=== PATIENT | female | born 1995 | race Caucasian/White ===

== ENCOUNTER 2020-01-27 01:37 | Emergency (ER) | payer MEDICAID, SELFPAY ==
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
[2020-01-27 01:36] VITALS: BP 138/97; PULSE 113; RESP 18; TEMP 36.7; O2SAT 98
[2020-01-27 01:59] VITALS: RESP 21; O2SAT 97
[2020-01-27 02:11] LABS: Basophils Absolute Auto 0.1 K/mm3 (0.0-0.1); Basophils Percent Auto 0.3 % (0.2-1.2); Hematocrit 45.9 % (37.0-47.0); Hemoglobin 15.4 g/dL (12.0-15.0); Immature Granulocyte Absolute 0.12 K/mm3 (0.00-0.031); Immature Granulocyte Percent A 0.8 % (0-0.5); Lymphocytes Absolute Auto 1.59 K/mm3 (0.9-3.2); Lymphocytes Percent Auto 10.1 % (18.3-44.2); Mean Corpuscular HGB Conc 33.6 g/dl (32-36); Mean Corpuscular Volume 89.5 fl (80-100); Mean Platelet Volume 9.9 fl (7.4-10.4); Monocytes Percent Auto 6.4 % (2.6-8.5); Neutrophils Absolute Auto 12.9 K/mm3 (1.3-6.7); Neutrophils Percent Auto 82.4 % (45.5-73.1); Platelet Count Result 403 k/mm3 (150-375); Red Blood Count 5.13 M/mm3 (4.2-5.4); Red Cell Distribution Width 12.6 % (11.5-14.5); White Blood Count 15.7 K/mm3 (4.5-10.0)
[2020-01-27 02:21] LABS: Prothrombin Time 13.1 Seconds (11.1-14.7)
[2020-01-27 02:22] LABS: Partial Thromboplastin Time 29.3 SECONDS (22.3-36.8)
[2020-01-27] MEDS: SODIUM CHLORIDE 0.9% IV 1,000 ML 999 ML IV CONT (02:41)
[2020-01-27 02:42] VITALS: BP 148/106; PULSE 110; RESP 21; O2SAT 97
[2020-01-27 02:47] LABS: Ethanol 203 mg/dL (<10)
[2020-01-27 02:49] LABS: Alanine Aminotransferase 29 U/L (4-35); Albumin Level 4.9 g/dL (3.5-5.1); Alkaline Phosphatase 141 U/L (38-126); Aspartate Amino Transferase 39 U/L (14-36); Bilirubin,Total 0.2 mg/dL (0.2-1.3); Blood Urea Nitrogen 5 mg/dL (7-17); Carbon Dioxide 23 mmol/L (22-30); Chloride 107 mmol/L (98-107); Estimated CRCL calculation 190 ml/min; Estimated Glomerular Filt Rate > 60; Glucose 118 mg/dL (65-105); Potassium 3.4 mmol/L (3.4-5.0); Sodium 143 mmol/L (137-145)
[2020-01-27 02:51] LABS: Add Urine Microscopic? YES; Appearance Urine Clear (Clear); Bilirubin Urine Negative (Negative); Blood Urine Negative (Negative); Color Urine Yellow (Yellow); Glucose Urine UA Negative (Negative); Hyaline Casts Urine 20-29 /lpf; Ketones Urine Negative (Negative); Leukocyte Esterase Ur Negative LEU/UL (Negative); Mucus Urine Rare /lpf; Nitrate Urine Negative (Negative); Protein Urine 2+ mg/dL (Negative); RBC Urine 0-2 /hpf (0-2); Specific Grav Ur 1.011 (1.001-1.035); Squamous Epithelial Cell Urine Many /hpf (Few); Urobilinogen Urine Negative mg/dL (<2.0); WBC Urine 0-3 /hpf
[2020-01-27 03:03] LABS: Amphetamine Screen Urine Negative (Negative); Barbiturate Screen Urine Negative (Negative); Benzodiazepines Screen Urine Negative (Negative); Cannabinoid Screen Urine Positive (Negative); Cocaine Screen Urine Negative (Negative); Methadone Screen Urine Negative (Negative); Opiate Screen Urine Negative (Negative); Phencyclidine Screen Urine Negative (Negative)
--- NOTE | 2020-01-27 03:45 | PC.NURSE ---
Patient returning from radiology at this time.
[2020-01-27 04:09] VITALS: BP 136/89; PULSE 107; RESP 23; O2SAT 98
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
[2020-01-27 05:14] VITALS: BP 122/86; PULSE 98; RESP 20; TEMP 36.4; O2SAT 97
== END 2020-01-27 05:16 | disposition home or self-care (01) ==
PROVIDERS: Emergency Provider Emergency Medicine
DX: S42.441A Displaced fracture (avulsion) of medial epicondyle of right humerus, initial encounter for closed fracture (principal); S50.02XA Contusion of left elbow, initial encounter; S60.512A Abrasion of left hand, initial encounter; S80.01XA Contusion of right knee, initial encounter; X58.XXXA Exposure to other specified factors, initial encounter
CPT/HCPCS: 36415; 70450; 71260; 72125; 73080; 73130; 73560; 73564; 74177; 80053; 80307; 81001; 81025; 85025; 85610; 85730; 99284; A4565; J7030; Q9967

== ENCOUNTER 2020-04-07 08:00 | Outpatient (RCR) | payer OTHER, SELFPAY ==
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
--- NOTE | 2020-03-23 16:13 | PCPTNOTE ---
Patient called & cancelled scheduled appointment for tomorrow, 03/24/2020, due to family emergency.
--- NOTE | 2020-04-07 08:28 | PCPTNOTE ---
Patient did not show up for scheduled appointment this date.
--- NOTE | 2020-04-19 12:42 | PCPTNOTE ---
PHYSICAL THERAPY DISCHARGE NOTE Attending Provider: Lico Preston MD Patient:[place] Zuniga Date of :1995 [place] did not return for her final physical therapy appointment scheduled for 04/07/2020. At the last attended appointment we did discuss potential discharge from PT soon. No formal assessment was performed; however, patient did appear to have significantly improved elbow ROM for flexion, extension, and pronation/supination. The right arm is not quite symmetrical to the left but is functional. She will be discharged from PT at this time. Thank you for referring this patient to [facility]. Please review, sign, date and return this discharge summary REMEDIOS. I have been updated about the patient's current status and I agree with discharge from the above service at this time. Referring Physician Date
== END 2020-04-26 14:29 | disposition home or self-care (01) ==
LOC: ANHPT 08:00
PROVIDERS: PCP Nurse Practitioner Family; Visit Provider Orthopaedic Surgery
DX: S52.134D Nondisplaced fracture of neck of right radius, subsequent encounter for closed fracture with routine healing (principal)
CPT/HCPCS: 97110; 97140; 97161

== ENCOUNTER 2025-03-05 12:01 | Outpatient (CLI) | payer OTHER, SELFPAY ==
[2025-03-05 15:39] LABS: Hematocrit 41.3 % (37.0-47.0); Hemoglobin 13.3 g/dL (12.0-15.0); Mean Corpuscular HGB Conc 32.2 g/dl (32-36); Mean Corpuscular Hemoglobin 28.9 pg (26-34); Mean Corpuscular Volume 89.8 fl (80-100); Mean Platelet Volume 10.9 fl (7.4-10.4); Platelet Count Result 312 k/mm3 (150-375); Red Cell Distribution Width 13.5 % (11.5-14.5); White Blood Count 11.1 K/mm3 (4.5-10.0)
[2025-03-05 15:53] LABS: Glucose 1 Hour PP 50gm Dose 93 mg/dL
[2025-03-05 16:34] LABS: HIV 1/2 Ab P24 Ag Result Negative (Negative)
[2025-03-05 16:50] LABS: Syphilis IgG/IgM Antibody Non-Reactive (Nonreactive)
[2025-03-05 16:54] LABS: Hepatitis B Surface Antigen Negative (Negative)
[2025-03-05 16:55] LABS: Rubella IgG Antibody 22.2 IU/ML
[2025-03-07 02:14] LABS: CMV IgG Antibody. <0.60 U/mL
[2025-03-12 16:43] LABS: SMA 2.0 RISK VARIANT NOT DETECTED
[2025-03-19 19:13] LABS: CF Result NEGATIVE
== END 2025-03-05 12:02 | disposition home or self-care (01) ==
PROVIDERS: PCP Internal Medicine; Visit Provider Student in an Organized Health Care Education/Training Program
DX: N91.2 Amenorrhea, unspecified (principal)
CPT/HCPCS: 36415; 81220; 81329; 82947; 84702; 85027; 86593; 86644; 86703; 86747; 86762; 86787; 86850; 86900; 86901; 87086; 87340; G0432

== ENCOUNTER 2025-08-26 21:16 | Emergency (ER) | payer OTHER, SELFPAY ==
[2025-08-26 21:35] VITALS: BP 131/84; PULSE 80; RESP 17; TEMP 36.8; O2SAT 99
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
[2025-08-27] MEDS: BACITRACIN OINTMENT 15 GM TUBE 1 APPLIC TOPICAL (00:38)
--- OUTSIDE RECORDS SUMMARY | 2025-08-27 00:42 | XMS_ITS | Data Portability ---
Author Organization [facility] [place], Main Office Address [address] [place] [address] Assessment No assessment recorded. Plan of Treatment Reminders Order Date Submit Date Provider Last Modified By Organization Details Last Modified Time Details Appointments None recorded. Lab CBC w/ auto diff 2024 025 [email or web address] [employer] [facility], [address], [address], [place], [address], 09:25:08 lipid panel, serum 2024 025 SABRINA [facility] [employer] [facility], [address], [place], [address], 5 13:40:50 CMP, serum or plasma 2024 025 [email or web address] [employer] [facility], [address], [place], [address], 09:25:08 Referral None recorded. Procedures None recorded. Surgeries None recorded. Imaging None recorded. Medication Orders fluticasone propionate 50 mcg/actuati on nasal spray,suspe nsion [address] [facility], [address] [place] [address], [address], 5 12:09:11 montelukast 10 mg tablet [address] [facility], [address] [place] [address], [address], 12:09:47 Patient TargetsNo targets recorded. Patient Instructions Encounter Date Encounter Id Patient Instructions Last Modified By Organization Details Last Modified Time 04/16/2025 [id number] Discussed the importance of antibiotic therapy compliance. Patient needs to take medication as prescribed, including completing entire course even if symptoms improve/resolve. Discussed possible side effects of medication. Instructed patient to take medication with food to prevent stomach upset and increase daily water intake. Patient will follow up in 3-4 days if symptoms are not improving or worsen while taking antibiotics. [email or web address] Not available 04/16/2025 16:56:03 Discussed antibiotic compliance and care. Continue to see OB as scheduled and call office with any concerns or problems. Not available 04/16/2025 16:56:50 Reason for Referral None Reported. Results Created Date Observation Date Name Description Value Unit Range Abnormal Flag Note LastModifiedBy Organization Detail LastModifiedTime 02/12/2002/11/2025 urina lysis , dipst ick Leukocytes (reference range: negative angella/ l) Small Not Available [facility] Internal [facility] [address] [place], [address], 02/10/2025 11:39:17 02/12/2002/11/2025 urina lysis , dipst ick Nitrite (reference rage: negative mg/dl) negati ve Not Available [facility] Internal [facility] [address] [place], [address], 02/10/2025 11:39:17 02/12/2002/11/2025 urina lysis , dipst ick Urobilinogen (reference range: 0.2-1 mg/dl) 0.[address] [facility] Internal [facility] [address] [place], [address], 02/10/2025 11:39:17 02/12/20 25 02/11/2025 urina lysis , dipst ick Protein (reference range: negative mg/dl) Negati ve Not Available [facility] [address] [place], [address], 02/10/2025 11:39:17 02/12/20 25 02/11/2025 urina lysis , dipst ick pH (reference range: 5-7) 6.5 Not Available [facility] [address] [place], [address], 02/10/2025 11:39:17 02/12/20 25 02/11/2025 urina lysis , dipst ick Blood (reference range: negative Antonio/ l) Negati ve Not Available [facility] [address] [place], [address], 02/10/2025 11:39:17 02/12/20 25 02/11/2025 urina lysis , dipst ick Specific [place] (reference range: 1.005-1.030) 1.015 Not Available [facility] [address] [place], [address], 02/10/2025 11:39:17 02/12/20 25 02/11/2025 urina lysis , dipst ick Ketone (reference range: negative mg/dl) Negati ve Not Available [facility] [address] [place], [address], 02/10/2025 11:39:17 02/12/20 25 02/11/2025 urina lysis , dipst ick Bilirubin (reference range: negative mg/dl) Negati ve Not Available [facility] [address] [place], [address], 02/10/2025 11:39:17 02/12/20 25 02/11/2025 urina lysis , dipst ick Glucose (reference range: negative mg/dl) Negati ve Not Available [facility] [place] [place] [facility] [address] [place], [address], 02/10/2025 11:39:17 02/12/20 25 02/11/2025 urina lysis , dipst ick Appearance Clear Not Available [facility] [address] [place], [address], 02/10/2025 11:39:17 02/12/20 25 02/11/2025 urina lysis , dipst ick Color Yellow Not Available [facility] Internal [facility] [address] [place], [address], 02/10/2025 11:39:17 Result Notes None recorded. Problems Name Problem SNOMED Code Status Onset Date Resolution Date Notes Provider Name and Address Organization Details Recorded Time Acute sinusitis 55025782 Active 2021 Not Available [facility] 3 00:51:03 Adult health examination Active 2021 Not Available [facility] 3 00:51:03 Obesity 083143108 Active 2021 Not Available [facility] 3 00:51:03 Sinusitis 66258538 Active 2024 Millie Espinal MA null, [place] [employer] [facility] [employer] 5 11:58:43 Allergic rhinitis 20930270 Active 2024 Rafael Bauer MD [address], [place], [address] , [employer] 5 12:15:35 Dysuria 05045845 Active 2024 VIRGINIA Chanel [address], [address], [place], [address] , [facility] [employer] [facility] [employer] 5 11:39:15 Missed period 07969367 Active 2024 Bridgett mac, RMLauren null, [facility] [employer] [facility] 5 12:55:07 Generalized anxiety disorder 39840421 Active 2024 VIRGINIA Chanel [address] [facility], [facility] [address], [place], [address] , [facility] [employer] [facility] 5 12:47:49 Problem Notes None recorded. Procedures Surgical History Date Name Laterality Status Provider Name and Address Organization Details Recorded Time 08/13/20 [employer] Procedure completed Not Available [facility] 2022 00:41:10 06/30/20 Date of Last Pap Smear completed Not Available [facility] 11/08/2022 00:41:09 tonsillectomy completed Not Available [facility] 11/08/2022 00:41:10 Imaging Results None recorded. Procedure Notes None recorded. Medical Equipment None Reported. Allergies No known drug allergies Medications Name Sig Start Date Stop Date Status Note LastModified by Organization Details LastModified Time amoxicill in 500 mg capsule TAKE 1 CAPSULE BY MOUTH EVERY 8 HOURS FOR 7 DAYS 05/07 completed Not Available Not Available Not Available Aviane 0.1 mg-20 mcg tablet TAKE 1 TABLET BY MOUTH ONCE DAILY 05/07 completed Not Available Not Available Not Available fluconazo le 150 mg tablet Take 1 tablet every day by oral route. 08/26 completed Not Available Not Available Not Available metronida zole 0.75 % (37.5 mg/5 gram) vaginal gel Insert 1 applicat orful every day by vaginal route at bedtime for 5 days. active Not Available Not Available No t Available ondansetr on HCl 4 mg tablet TAKE 1 TABLET BY MOUTH EVERY 6 HOURS NEEDED FOR NAUSEA AND VOMITING active Not Available Not Available No t Available prednison e 20 mg tablet TAKE 2 TABLETS BY MOUTH ONCE DAILY FOR 5 DAYS 06/08 completed Not Available Not Available Not Available Zithromax 250 mg tablet TAKE 2 TABLETS (500 MG) BY ORAL ROUTE ONCE DAILY FOR 1 DAY THEN 1 TABLET (250 MG) BY ORAL ROUTE ONCE DAILY FOR 4 DAYS 06/27 completed Not Available Not Available Not Available amoxicill in 500 mg tablet Take 1 tablet every 8 hours by oral route for 7 days. 12/03 completed per 10/31/24 patient case / ds Not Available Not Available Not Available metoclopr amide 5 mg tablet TAKE 1 TABLET BY MOUTH ONCE DAILY 05/07 completed Not Available Not Available Not Available sertralin e 25 mg tablet TAKE 1 TABLET BY MOUTH ONCE DAILY active Not Available Not Available No t Available monteluka st 10 mg tablet TAKE 1 TABLET BY MOUTH ONCE DAILY 05/07 completed Not Available Not Available Not Available hydroxyzi ne HCl 25 mg tablet TAKE 1 TABLET BY MOUTH EVERY 6 HOURS NEEDED 06/08 completed Not Available Not Available Not Available ibuprofen 600 mg tablet TAKE 1 TABLET BY MOUTH EVERY 6 HOURS NEEDED active Not Available Not Available No t Available fluticaso ne propionat e 50 mcg/actua tion nasal spray,yolanda pension USE 1 SPRAY(S) IN EACH NOSTRIL ONCE DAILY 05/07 completed Not Available Not Available Not Available doxycycli ne hyclate 100 mg tablet TAKE 1 TABLET BY MOUTH TWICE DAILY 06/08 completed Not Available Not Available Not Available azithromy valarie 500 mg tablet Take 2 tablets every day by oral route for 1 day. active Not Available Not Available No t Available bupropion HCl XL 150 mg 24 hr tablet, extended release TAKE ONE TABLET BY MOUTH ONCE DAILY 05/27 completed Not Available Not Available Not Available nitrofura ntoin monohydra te/macroc rystals 100 mg capsule TAKE 1 CAPSULE BY MOUTH EVERY 12 HOURS FOR 3 DAYS 05/07 completed Not Available Not Available Not Available Nexplanon 68 mg subdermal implant Inject 1 implant by subcutan eous route. 10/11 completed Not Available Not Available Not Available Vitals Date Recorded Body mass index (BMI) Body height Oxygen saturation Heart rate Body weight Systolic And Diastolic Provider Name and Address Organization Details Last Updated DateTime 2 36.6 kg/m2 170.18 cm 98 % 77.99 /min 335166. 61 g 124/70 mm[Hg] [facility] Available [facility] 3 00:43:05 Date Recorded Body mass index (BMI) Body height Oxygen saturation Heart rate Respiratory rate Body temperature Body weight Systolic And Diastolic Provider Name and Address Organization Details Last Updated DateTime 2 36.3 kg/m2 170.18 cm 98 % 77 /min 12 /min 97.7 [degF] 879572. 43 g 110/82 mm[Hg] Not Available [facility] 3 00:43:05 Date Recorded Body weight Body mass index (BMI) Body height Body temperature Heart rate Oxygen saturation Systolic And Diastolic Provider Name and Address Organization Details Last Updated DateTime 5 768566. 28 g 35.2 kg/m2 170.18 cm 97.4 [degF] 83 /min 98 % 116/72 mm[Hg] Bridgett hyman [facility] [employer] [facility] 5 11:48:33 Date Recorded Body height Body mass index (BMI) Body weight Body temperature Oxygen saturation Heart rate Systolic And Diastolic Provider Name and Address Organization Details Last Updated DateTime 5 170.18 cm 33.2 kg/m2 71677.5 8 g 97.8 [degF] 97 % 89 /min 120/86 mm[Hg] Leigh vincent [employer] 5 15:27:45 Date Recorded Body height Body mass index (BMI) Body weight Heart rate Oxygen saturation Body temperature Systolic And Diastolic Provider Name and Address Organization Details Last Updated DateTime 5 170.18 cm 32.7 kg/m2 85501.8 1 g 78 /min 99 % 97.3 [degF] 126/82 mm[Hg] Willy Zamora [facility] [employer] [facility] 5 12:08:11 Social History Question Answer Notes LastModified by Organizat ion Details LastModified Time Tobacco Smoking Status Never Smoker Not Available [facility] 11/08/2022 00:40:59 Do You Have An Advance Directive? No [id number] Information not available 11/08/2022 What Is Your Level Of Caffeine Consumption? Moderate [id number] Information not available 11/08/2022 How Much Tobacco Do You Chew? None [id number] Information not available 11/08/2022 In The 14 Days Before Symptom Onset, Have You Had Close Contact With A Laboratory-confir med COVID-19 While That Case Was Ill? No [id number] Information not available 11/08/2022 In The 14 Days Before Symptom Onset, Have You Had Close Contact With A Person Who Is Under Investigation For COVID-19 While That Person Was Ill? No [id number] Information not available 11/08/2022 What Type Of Diet Are You Following? REGULAR [id number] Information not available 11/08/2022 What Is The Highest Grade Or Level Of School You Have Completed Or The Highest Degree You Have Received? [id number] Information not available 12/03/2024 Do You Use Insect Repellent Routinely? No Information not available 12/03/2024 Where Do You Live? SingleLevelHouse Information not available 12/03/2024 What Was The Date Of Your Most Recent Tobacco Screening? 12/03/2024 Information not available 12/03/2024 Do You Have Any Pets? Yes Information not available 12/03/2024 What Is Your Relationship Status? Single [id number] Information not available 11/08/2022 Do You Use Your Seat Belt Or Car Seat Routinely? Yes [id number] Information not available 11/08/2022 Do You Have Smoke And Carbon Monoxide Detectors In Your Home? Yes Information not available 12/03/2024 Are You Passively Exposed To Smoke? Yes Information no t available 12/03/2024 Are There Any Smokers In Your House? No Information not available 12/03/2024 Do You Use Sunscreen Routinely? Yes [id number] Information not available 11/08/2022 Have You Recently Traveled Abroad? No Information not available 12/03/2024 Sex: Female Functional Status Question Answer Note LastModified by Organizat ion Details LastModified Time What is your level of alcohol consumption? Occasional [id number] Information not available 11/08/2022 Are you currently employed? 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 Never used electronic cigarettes [id number] Information not available 11/08/2022 What is your exercise level? Occasional [id number] Information not available 11/08/2022 Mental Status None recorded. Family History Relationship Description Onset Age of this Age Resolved Age Notes LastModified by Organization Details LastModified Time Maternal Grandmother Heart disease [id number] Not available 11/08/2022 00:41:13 Maternal Aunt Diabetes mellitus [id number] [id number] Not available 11/08/2022 00:41:13 Maternal Aunt Malignant neoplastic disease Not available 04/16 15:20:28 Maternal Uncle Diabetes mellitus [id number].009 [id number] Not available 11/08/2022 00:41:13 Mother Diabetes mellitus [id number] [id number] Not available 11/08/2022 00:41:13 Mother Depressive disorder [id number] [id number] Not available 11/08/2022 00:41:13 Medical History Condition Response FEMALE PROBLEMS / INFECTIONS Gynecological History Statement/Question Response Abnormal Pap Y Date of Last Pap Smear 06/30/2020 Current Control Method Implant Age at Menarche 13 Date of LMP 07/23/2021 Breast Problems no Obstetrics History GPAL:G 0 P 0 0 0 0 Immunizations Vaccine Type Date Status Note Provider Nam e and Address Organization Details Recorded Time Hep B, adolescent or pediatric 1995 completed Not Available [facility] 11:58:41 OPV, trivalent 1995 completed Not Available [facility] 05/07/2025 11:58:41 Hep B, adolescent or pediatric 1995 completed Not Available [facility] 11:58:41 DTP-Hib 1995 completed Not Available [facility] 05/07/2025 11:58:41 OPV, trivalent 1995 completed Not Available [facility] 05/07/2025 11:58:41 DTP-Hib 1995 completed Not Available [facility] 05/07/2025 11:58:41 DTP-Hib 1995 completed Not Available [facility] 05/07/2025 11:58:41 OPV, trivalent 1995 completed Not Available [facility] 05/07/2025 11:58:41 OPV, trivalent 01/31/1996 completed Not Available [facility] 05/07/2025 11:58:41 DTP-Hib 01/31/1996 completed Not Available [facility] 05/07/2025 11:58:41 Hep B, adolescent or pediatric 01/31/1996 completed Not Available [facility] 11:58:41 MMR 08/04/1996 completed Not Available [facility] 05/07/2025 11:58:41 OPV, trivalent 11/17/1996 completed Not Available [facility] 05/07/2025 11:58:41 DTP-Hib 11/17/1996 completed Not Available [facility] 05/07/2025 11:58:41 varicella 02/06/1997 completed [facility] 05/07/2025 11:58:41 Influenza, split virus, quadrivalent, PF 07/07/2022 completed Not Available [facility] 11:58:41 COVID-19, mRNA, LNP-S, PF, 100 mcg/0.5mL dose or 50 mcg/0.25mL dose 09/18/2021 completed Not Available [facility] 3 00:51:03 COVID-19, mRNA, LNP-S, PF, 100 mcg/0.5mL dose or 50 mcg/0.25mL dose 10/22/2020 completed Not Available [facility] 3 00:51:03 COVID-19, mRNA, LNP-S, PF, 100 mcg/0.5mL dose or 50 mcg/0.25mL dose 09/23/2020 completed Not Available [facility] 3 00:51:03 Influenza, split virus, quadrivalent, PF 06/08/2020 completed Not Available [facility] 00:51:03 Past Encounters Encounter ID Performer Location Encounter Start Date Encounter Closed Date Diagnosis/Indication Diagnosis SNOMED-CT Code Diagnosis ICD10 Code Diagnosis IMO Codes Diagnosis Note [id number] [facility] _ATHENA_M IGRATION_ DEFAULT_1 _1 , 11/15/2020 00:00:00 11/15/2020 17:42:16 [id number] S[facility] _ATHENA_M IGRATION_ DEFAULT_1 _1 , 2021 00:00:00 2021 15:33:08 [id number] S[facility] _ATHENA_M IGRATION_ DEFAULT_1 _1 , 08/26/2021 00:00:00 08/26/2021 09:24:02 [id number] Rafael Bauer MD [facility] Internal Med [address] [address] 10/11/2021 00:00:00 10/11/2021 12:56:16 [id number] Rafael Bauer MD [facility] Internal Med [address] [address] 10/26/2021 00:00:00 10/26/2021 15:30:03 [id number] Rafael Bauer MD [facility] Internal Med [address] [address] 12/03/2024 11:32:10 12/03/2024 13:59:12 Acute sinusitis 90937785 J01.90 already took abx Allergic rhinitis 605773 04 J30.9 Adult heal th examination 650689810 Z00.00 [id number] Rafael Bauer MD [facility] Internal Med [address] [address] 04/16/2025 15:18:57 04/16/2025 16:19:52 History of urinary tract infection 0100446727 107 Z87.440 [id number] no symptoms at this time, doing well. [id number] Rafael Bauer MD [facility] Internal Med [address] [address] 05/07/2025 11:55:40 05/07/2025 15:11:57 Generalized anxiety disorder 38327078 F41.1 600566 Started on medicaton, denies s/hi at this timeAll questions and concerns addressed at this time. Health Concerns Section Related Observation LastModified by Organization Detai ls LastModified Time None Recorded Concern Status LastModified by Organization Details LastModified Time None Recorded Advance Directives Directive N: Payers Insurance Date Sequence Insurance Name Policy Number Policy Mancuso Covered Member ID Mancuso Member ID Guarantor Name 05/15/2025 1 [facility] [id number] [place] Zuniga [id number] [place] Mac Zuniga 04/15/2025 1 [facility] (MEDICAID HMO) [id number] [place] Mac Zuniga [id number] [place] Mac Zuniga 05/15/2025 2 [facility] [place] Zuniga [id number] [place] Zuniga Notes Date Note Type Note Provider Name and Address Organization Details Recorded Time 12/03/2024 text/html ROS as noted in the HPI Pt is here today to re-establish care. She has not been seen since he C/o runny nose, slight cough, productive green in color, throat is getting sore. Has been taking OTC claritin and nasal spray and was prescribed ABX from urgent care has just finished it and still not feeling any better. Had strep throat last month cefdinir and MDPSHE IS STILL HAVING COUGH Rafael Bauer MD [address], [place], [address], [employer] 12/03/2024 13:03:39 04/16/2025 text/html ROS as noted in the HPI Patient is 29y/o female who is her for ER follow up. She reports that she was having cramping and is 13 weeks gestation and was concern. Labs were normal and heart rate was normal and healthy. UA did show UTI and was treated with amoxicillin. She reports that she is feeling better at this time and is no longer experianceing any symptoms. SHe denies chest pain, shortness of breath, headache, abnormal bleeding, fever, or back pain at this time. VIRGINIA Chanel [address], [address], [place], [address], [employer] 04/16/2025 16:57:07 05/07/2025 text/html Patient is 29y/o female who is here to discuss medication that was started at the OBGYN office. She reports that she is feeling okay at this time other than VIRGINIA Chanel [address], [place], [address], [employer] 05/07/2025 12:50:01 OBGyn Episode No OBEpisode recorded.
== END 2025-08-27 00:44 | disposition home or self-care (01) ==
LOC: ANHED 08-27 00:41
PROVIDERS: Emergency Provider Student in an Organized Health Care Education/Training Program; PCP Internal Medicine
DX: O26.892 Other specified pregnancy related conditions, second trimester (principal); S61.452A Open bite of left hand, initial encounter; Z3A.00 Weeks of gestation of pregnancy not specified; W54.0XXA Bitten by dog, initial encounter
CPT/HCPCS: 99283; A9270